=== PATIENT | male | born 2000 | race Two or more races ===

== ENCOUNTER 2025-06-01 07:15 | Day surgery (SDC) | payer MEDICAID ==
[2025-05-27 10:13] LABS: Hematocrit 45.8 % (41.0-53.0); Hemoglobin 15.5 g/dL (13.5-17.5); Mean Corpuscular Hemoglobin 31.8 pg (28.0-32.0); Mean Corpuscular Volume 94.0 fL (80.0-100.0); Nucleated Red Blood Cells % 0.1 %
[2025-05-27 10:25] LABS: Alanine Aminotransferase 34 U/L (7-40); Alkaline Phosphatase 69 U/L (46-116); Anion Gap 10 (5-15); BUN/Creatinine Ratio 7.5 (10.0-20.0); Calcium 9.9 mg/dL (8.7-10.4); Carbon Dioxide 30 mmol/L (20-31); Chloride 103 mmol/L (98-107); Glucose 92 mg/dL (74-106); Potassium 3.8 mmol/L (3.5-5.1); Sodium 143 mmol/L (136-145); Total Protein 8.0 g/dL (5.7-8.2)
[2025-05-27 10:26] LABS: Bilirubin, Total 1.1 mg/dL (0.2-1.0)
[2025-05-27 10:28] LABS: Albumin 5.2 g/dL (3.2-4.8); Blood Urea Nitrogen 8 mg/dL (9-23)
[2025-05-27 10:30] LABS: INR 0.98 (0.9-1.15); Partial Thromboplastin Time 27.1 SEC (24.5-34.5); Prothrombin Time 10.4 sec (9.3-11.8)
[2025-05-27 10:35] LABS: Urine Protein, UAD TRACE (Negative)
[~2025-06-01] VITALS: Ht 175.3 cm; Wt 69.4 kg
[~2025-06-01 07:15] MED LIST: CHOL25CH3 PO; CYAN-17 PO; MAGN400T40 PO; SERT-289 PO; ZINC100T5 PO
[2025-06-01] MEDS ORDERED: GLYCOPYRROLATE 0.2 MG/ML 1ML VIAL ONE (08:48)
[2025-06-01] MEDS ORDERED: fentaNYL CITRATE 100 MCG/2 ML VL ONE (08:48)
[2025-06-01] MEDS ORDERED: PROPOFOL 10 MG/ML 20 ML IV ONE ×2 (08:48→10:01)
[2025-06-01] MEDS ORDERED: LIDOCAINE 2% (LOCAL ANESTH.) PF 5ml SDV ONE (08:48)
[2025-06-01] MEDS ORDERED: KETAMINE 50mg/ML 1ml syringe ONE (08:48)
[2025-06-01] MEDS ORDERED: KETOROLAC TROMETH 30 MG/ML 1ML VIAL ONE (08:48)
[2025-06-01] MEDS ORDERED: ONDANSETRON HCL 4 MG/2 ML VIAL ONE (08:48)
--- NOTE | 2025-06-01 09:17 | DVHOP2 ---
Operative Report - 2 Report Details Date: 06/01/25 Preop Diagnosis: 1. Left foot pes planus 2. Left foot short achilles 3. Left foot pain Postop Diagnosis: Same as preop Surgeon: Margaret Smith MD Anesthesiologist: See anesthesia Anesthesia: General Implant: Arthrex calcaneal slide plate and screws Arthrex 10 mm Pal wedge Arthrex FiberTak suture anchor x2 Consent: The patient was informed of the risks and benefits of the procedure. These include but are not limited to complications of anesthesia, postoperative infection, incomplete relief of symptoms, recurrence of symptoms, damage to blood vessels, nerves and tendons, deep venous thrombosis, pulmonary embolism and possible need for repeat surgery in the future. Complications: None Estimated Blood Loss: Minimal Fluids: See anesthesia Findings: Consistent with diagnosis Indications for Surgery: Worsening left foot pain Name of Procedure Performed 1. Left medial calcaneal slide (32089) 2. Left pal osteotomy (71108) 3. Left foot kidner procedure (36829) 4. Left foot deltoid repair (54052) Procedure Details Procedure Details: PRE-PROCEDURE INFORMATION: In the pre-op holding area, the extremity to be operated on was clearly marked and the patient verified correct laterality of the marking. The patient was transferred to the OR table and placed in a supine position. A timeout was performed in which identification of the correct patient, procedure, location, and materials was done. The left foot and leg were prepped and draped in normal sterile fashion. The foot and leg were exsanguinated and the thigh tourniquet was inflated to 250 mmHg. DESCRIPTION OF PROCEDURE: Attention was directed to the left lateral heel where a 5-6 cm longitudinal incision was made along the lateral aspect of the calcaneus. The incision was deepened through sharp dissection care was taken to avoid any neurovascular tendinous structures. The periosteum on the lateral ca lcaneus was then elevated using a periosteal elevator. A sagittal saw osteotomy was made posterior to the posterior facet. The posterior tuberosity was then shifted proximally 10 mm medially. A pre contoured calcaneal plate was selected and fixed with locking screws under fluoroscopic guidance confirming good alignment and fixation. A separate incision was made 5 cm oblique proximal to the calcaneocuboid joint on the lateral side. Incision was deepened through sharp and blunt dissection, care was taken to avoid any neurovascular tendinous structures. Transverse osteotomy was made proximally whenever cm proximal to the calcaneocuboid joint using a microsagittal saw. A 10 mL premeasured allograft wedge was inserted into the defect. No internal fixation was used. The graft was stable under tension. The periosteum was closed tightly over the graft to prevent displac ement. A 4cm linear incision was made over the navicular. The incision was deepened through sharp and blunt dissection, care was taken to avoid any neurovascular tendinous structures. The distal stump was reflected from partial aspect of the navicular. Using a sagittal saw, the prominent navicular was then removed. The tendon was then advanced and reattached to the understood was in the way to the bone using a soft tissue anchor FiberTak. The tendon sheath was then closed over the repair. The medial incision was then lengthened to gain access to the deltoid ligament. The incision was deepened through sharp and blunt dissection, care was taken to avoid any neurovascular structures. It was noted that there was damage to the superficial and deep deltoid ligaments. Using a Arthrex FiberTak, the soft tissue was anchor placed into the medial malleolus. The deep and superficial d eltoid ligaments were repaired, and sutured in a mattress fashion using the FiberTak suture and 2-0 Vicryl. It was noted after the repair of the deltoid ligament and advancement of the posterior tibial tendon that there was decreased laxity on the medial aspect. All surgical wounds were irrigated copiously with saline and closed in layers with the aforementioned suture material. A dry sterile dressing was placed on the surgical extremity. The patient was placed in a cam boot POSTOPERATIVE INFORMATION: The patient tolerated the above noted procedure and anesthesia well and was transferred to the PACU with vital signs stable, and vascular status intact with capillary refill intact to all digits. Postoperative instructions reviewed in detail with the patient with written instructions provided. Patient will return to clinic in approximately 10-14 days for first postoperative visit. Patient has the number of the clinic and was instructed to call prior to that time should any problems, questions, or concerns arise. Condition Good Disposition Home Visit Coding Podiatry Date of Service if different f: Jun 01, 2025 Billing Provider: MARGARET SMITH DPM Podiatry Common Visit Codes: PROCEDURE ONLY MARGARET SMITH DPM Jun 01, 2025 09:17
[2025-06-01] MEDS: CELECOXIB 100 MG CAP PO ONE (09:30)
[2025-06-01] MEDS: GABAPENTIN 300 MG CAP PO ONE (09:30)
[2025-06-01] MEDS: ACETAMINOPHEN IV 1000 MG/100ML (10MG/ML) IV ONE (09:30)
[2025-06-01] MEDS ORDERED: BUPIVACAINE 0.5% P/F INJ 10 ML VIAL ONE (09:37)
[2025-06-01] MEDS ORDERED: CELECOXIB 100 MG CAP ONE (09:38)
[2025-06-01] MEDS ORDERED: GABAPENTIN 300 MG CAP ONE (09:39)
[2025-06-01] MEDS ORDERED: ACETAMINOPHEN IV 100 ML IV ONE (09:39)
[2025-06-01 12:19] VITALS: PULSE 106; RESP 14; TEMP 97.1; O2SAT 97
[2025-06-01] MEDS ORDERED: FLUMAZENIL 0.1 MG/ML INJ 10ML MDV IV PRN (12:30)
[2025-06-01] MEDS ORDERED: hydrALAZINE HCL 20 MG/ML VL IV PRN (12:30)
[2025-06-01] MEDS ORDERED: NALOXONE HCL 0.4 MG/ML VIAL IV PRN (12:30)
[2025-06-01] MEDS ORDERED: HYDROmorphone HCL 2 MG/ML VL/or syr IV PRN (12:30)
[2025-06-01] MEDS ORDERED: ONDANSETRON HCL 4 MG/2 ML VIAL IV PRN (12:30)
[2025-06-01] MEDS ORDERED: fentaNYL CITRATE 100 MCG/2 ML VL IV PRN (12:30)
[2025-06-01 13:19] VITALS: BP 121/80; PULSE 62; RESP 12; O2SAT 98
== END 2025-06-01 13:29 | disposition home or self-care (01) ==
LOC: SUR 07:15
PROVIDERS: ATTEND Podiatrist
DX: M21.42 Flat foot [pes planus] (acquired), left foot (principal); M67.02 Short Achilles tendon (acquired), left ankle; F17.210 Nicotine dependence, cigarettes, uncomplicated
CPT/HCPCS: 27695; 28238; 28300; 36415; 64445; 80053; 81001; 85025; 85610; 85730; C1713; C1781; J1100; J1885; J2003; J2405; J2704; J3010; J0131; J3490